=== PATIENT | female | born 1995 | race Caucasian/White ===

== ENCOUNTER 2017-12-29 16:02 | Emergency (ER) | payer BC ==
[~2017-12-29] VITALS: Ht 162.6 cm; Wt 77.1 kg
[2017-12-29 16:05] VITALS: BP_SYST 129
[2017-12-29] MEDS ORDERED: BACITRACIN 1 GM OINT TP ONE (17:00)
[2017-12-29] MEDS ORDERED: DIPH-TET-PERTUS Vaccine 0.5 ML VIAL (ADACEL) IM ONE (17:00)
[2017-12-29 17:54] VITALS: BP_SYST 128
== END 2017-12-29 17:54 | disposition home or self-care (01) ==
LOC: SED 16:02
DX: S61.432A Puncture wound without foreign body of left hand, initial encounter (principal); W54.0XXA Bitten by dog, initial encounter; Y93.89 Activity, other specified; Y92.89 Other specified places as the place of occurrence of the external cause; Y99.8 Other external cause status
CPT/HCPCS: 90715; 99284